=== PATIENT | female | born 1995 | race Caucasian/White ===

== ENCOUNTER 2020-01-21 23:11 | Emergency (ER) | payer OTHER ==
--- NOTE | 2020-01-21 23:17 | ED Physician Documentation ---
History of Present Illness - Stated complaint Stated Complaint: FEM /ABD PX - History obtained from History obtained from: Patient (Patient is a 24-year-old female presents with a chief complaint of some dysuria and urinary frequency she reports she is otherwise healthy and up-to-date on all of her immunizations her last menstrual period was 2 weeks ago she recently discontinued taking her control. She reports subjective fevers and reports she has been taking Aleve for the last day. Denies any headache, cough, neck pain, rash, sore throat.) Review of Systems Constitutional: reports: Chills Eyes: reports: Reviewed and negative Ears: reports: Reviewed and negative Nose: reports: Reviewed and negative Throat: reports: Reviewed and negative Cardiac: reports: Reviewed and negative Respiratory: reports: Reviewed and negative GI: reports: Reviewed and negative : reports: Dysuria, Reviewed and negative Skin: reports: Reviewed and negative Musculoskeletal: reports: Reviewed and negative Neurologic: reports: Reviewed and negative Psychiatric: reports: Reviewed and negative Endocrine: reports: Reviewed and negative Immunocompromised: reports: Reviewed and negative PD PAST MEDICAL HISTORY - Present Medications Home Medications: Ambulatory Orders Medication Instructions Recorded Confirmed Cephalexin [Keflex] 500 mg PO QID 10 Days #40 capsule 01/22/20 - Allergies Allergies/Adverse Reactions: Allergies Allergy/AdvReac Type Severity Reaction Status Date / Time No Known Drug Allergies Allergy Verified 01/21/20 23:35 PD ED PE NORMAL - Vitals Vital signs reviewed: Yes - General General: Alert and oriented X 3, No acute distress, Well developed/nourished - HEENT HEENT: Atraumatic, PERRL, Moist mucous membranes - Neck Neck: Supple, no meningeal sign, No adenopathy, No JVD - Cardiac Cardiac: RRR, No murmur, Strong equal pulses - Respiratory Respiratory: No respiratory distress, Clear bilaterally - Abdomen Abdomen: Normal bowel sounds, Soft, Non tender, Non distended, No organomegaly - Derm Derm: Warm and dry - Extremities Extremities: No deformity, No tenderness to palpate, Normal ROM s pain, No edema, No calf tenderness / cord - Neuro Neuro: Alert and oriented X 3, 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, No motor deficit, No sensory deficit, Normal speech - Psych Psych: Normal mood, Normal affect Results - Vitals Vitals: Vital Signs - 24 hr 01/21/20 01/22/20 01/22/20 23:29 00:36 01:14 Temperature 39.6 C H 38.4 C H Heart Rate 136 H 110 H 104 H Respiratory 18 18 16 Rate Blood Pressure 119/89 H 122/73 O2 Saturation 97 100 100 01/22/20 02:05 Temperature 36.8 C Heart Rate 97 Respiratory 16 Rate Blood Pressure 104/63 O2 Saturation 97 Oxygen O2 Source Room air - Labs Labs: Laboratory Tests 01/21/20 01/21/20 01/21/20 23:30 23:40 23:40 WBC 9.4 RBC 4.22 Hgb 12.8 Hct 38.7 MCV 91.7 MCH 30.3 MCHC 33.1 RDW 12.5 Plt Count 222 MPV 10.6 Neut # (Auto) 7.8 H Lymph # (Auto) 0.6 L Ellis # (Auto) 0.9 Eos # (Auto) 0.0 Baso # (Auto) 0.0 Absolute Nucleated RBC 0.00 Nucleated RBC % 0.0 PT 12.4 INR 1.1 APTT 30.8 Sodium Potassium Chloride Carbon Dioxide Anion Gap BUN Creatinine Estimated GFR (MDRD) Glucose Lactic Acid Calcium Total Bilirubin AST ALT Alkaline Phosphatase Total Creatine Kinase Total Protein Albumin Globulin Albumin/Globulin Ratio Lipase Urine Color YELLOW Urine Clarity HAZY Urine pH 6.0 Ur Specific [place] 1.020 Urine Protein 30 H Urine Glucose (UA) NEGATIVE Urine Ketones NEGATIVE Urine Occult Blood MODERATE H Urine Nitrite POSITIVE H Urine Bilirubin NEGATIVE Urine Urobilinogen 0.2 (NORMAL) Ur Leukocyte Esterase LARGE H Urine RBC 6-10 H Urine WBC >25 H Ur Squamous Epith Cells FEW Squamous Urine Bacteria Moderate H Ur Microscopic Review INDICATED Urine Culture Comments INDICATED Urine HCG, Qual NEGATIVE 01/21/20 01/21/20 23:40 23:40 WBC RBC Hgb Hct MCV MCH MCHC RDW Plt Count MPV Neut # (Auto) Lymph # (Auto) Ellis # (Auto) Eos # (Auto) Baso # (Auto) Absolute Nucleated RBC Nucleated RBC % PT INR APTT Sodium 133 L Potassium 3.1 L Chloride 102 Carbon Dioxide 24 Anion Gap 7.0 BUN 12 Creatinine 0.7 Estimated GFR (MDRD) 103 Glucose 104 H Lactic Acid 1.1 Calcium 8.6 Total Bilirubin 0.5 AST 29 ALT 27 Alkaline Phosphatase 62 Total Creatine Kinase 53 Total Protein 7.8 Albumin 4.2 Globulin 3.6 Albumin/Globulin Ratio 1.2 Lipase 24 Urine Color Urine Clarity Urine pH Ur Specific [place] Urine Protein Urine Glucose (UA) Urine Ketones Urine Occult Blood Urine Nitrite Urine Bilirubin Urine Urobilinogen Ur Leukocyte Esterase Urine RBC Urine WBC Ur Squamous Epith Cells Urine Bacteria Ur Microscopic Review Urine Culture Comments Urine HCG, Qual PD MEDICAL DECISION MAKING - ED course Complexity details: re-evaluated patient (Patient's now afebrile heart rate is in the 90s ambulating, nontoxic and nonseptic appearing she is received 2 L of IV fluids 1 g of IV Rocephin patient will be treated for pyelonephritis with Keflex 500 mg to be taken 4 times a day for the next 10 days and follow-up with her primary care provider today for recheck.), considered differential (Patient's presenting with vague symptoms on history objective findings show temperature of 39.6 and a heart rate of 136 at this point patient will be given an empiric dose of IV Rocephin and IV for bolus and labs and chest x-ray will be sent. As well as blood cultures.), d/w patient Departure - Departure Disposition: 01 Home, Self Care Clinical Impression: Pyelonephritis Condition: Stable Instructions: Pyelonephritis Dc Follow-Up: Carlota Correia ARNP [Primary Care Provider] - Tomorrow Prescriptions: Cephalexin [Keflex] 500 mg PO QID 10 Days #40 capsule Comments: Call your primary care provider today to schedule follow-up visit.
[2020-01-21 23:34] LABS: BILIRUBIN,URINE NEGATIVE (NEGATIVE); GLUCOSE, URINE (UA) NEGATIVE (NEGATIVE); KETONES,URINE (UA) NEGATIVE (NEGATIVE); LEUKOCYTE ESTERASE, URINE LARGE (NEGATIVE); NITRITE,URINE POSITIVE (NEGATIVE); OCCULT BLOOD,URINE MODERATE (NEGATIVE); PROTEIN,URINE 30 mg/dL (NEGATIVE); UROBILINOGEN,URINE 0.2 (NORMAL) E.U./dL (NORMAL)
[2020-01-21 23:35] LABS: CLARITY,URINE HAZY (CLEAR)
[2020-01-21 23:36] LABS: HCG UR QUAL NEGATIVE
[2020-01-21] MEDS ORDERED: cefTRIAXone 1 GM in SODIUM CHLORIDE 0.9% MINIBAG 100 ML IV STA (23:36)
[2020-01-21] MEDS ORDERED: ACETAMINOPHEN 325 MG TABLET PO STA (23:36)
[2020-01-21] MEDS ORDERED: SODIUM CHLORIDE 0.9% 1,000 ML IV ONE (23:36)
[2020-01-21 23:43] LABS: BACTERIA,URINE Moderate /HPF (None Seen); SQUAMOUS EPITHELIAL CELL,UR FEW Squamous (<= Few)
[2020-01-21 23:54] LABS: BASOPHILS % (AUTO) 0.4 %; EOSINOPHILS % (AUTO) 0.1 %; HGB - HEMOGLOBIN 12.8 g/dL (12.0-16.0); LYMPHOCYTES # (AUTO) 0.6 10^3/uL (1.5-3.5); LYMPHOCYTES % (AUTO) 6.2 %; MEAN CORPUSCULAR HEMOGLOBIN 30.3 pg (27.0-31.0); MEAN CORPUSCULAR HGB CONC 33.1 g/dL (32.0-36.0); MEAN CORPUSCULAR VOLUME 91.7 fL (81.0-99.0); MEAN PLATELET VOLUME 10.6 fL (7.9-10.8); MONOCYTES # (AUTO) 0.9 10^3/uL (0.0-1.0); MONOCYTES % (AUTO) 9.6 %; NEUTROPHILS # (AUTO) 7.8 10^3/uL (1.5-6.6); NEUTROPHILS % (AUTO) 83.3 %; PLT - PLATELET COUNT 222 10^3/uL (130-450); RED BLOOD COUNT 4.22 10^6/uL (4.20-5.40); RED CELL DISTRIBUTION WIDTH 12.5 % (12.0-15.0); WHITE BLOOD COUNT 9.4 x10^3/uL (4.8-10.8)
[2020-01-21 23:59] LABS: INR 1.1 (0.8-1.2); PT - PROTHROMBIN TIME 12.4 secs (9.9-12.6)
[2020-01-22 00:05] LABS: ALBUMIN 4.2 g/dL (3.2-5.5); ALBUMIN/GLOBULIN RATIO 1.2 (1.0-2.2); BILIRUBIN,TOTAL 0.5 mg/dL (0.2-1.0); CALCIUM 8.6 mg/dL (8.5-10.3); CREATININE 0.7 mg/dL (0.4-1.0); TOTAL PROTEIN 7.8 g/dL (6.7-8.2)
[2020-01-22 00:06] LABS: PARTIAL THROMBOPLASTIN TIME 30.8 secs (24.9-33.3)
--- NOTE | 2020-01-22 00:25 | XRAY Report ---
Reason: fever Procedure Date: 01/21/2020 Accession Number: [id number] / [id number] Procedure: XR - Chest 1 View X-Ray CPT Code: 30185 Final Report FULL RESULT: EXAM: CHEST RADIOGRAPHY EXAM DATE: 01/21/2020 11:55 PM CLINICAL HISTORY: Fever. COMPARISON: None. TECHNIQUE: 1 view. FINDINGS: Lungs/Pleura: Clear lungs. No pleural effusion. No pneumothorax. Mediastinum: Within exam limitations, the cardiomediastinal contour is normal. Other: None. IMPRESSION: Normal single view chest radiography. [facility]
[2020-01-22] MEDS ORDERED: IBUPROFEN 800 MG TABLET PO STA (00:43)
[2020-01-22] MEDS ORDERED: SODIUM CHLORIDE 0.9% 1,000 ML IV ONE (00:43)
[2020-01-22 02:05] VITALS: BP 104/63
== END 2020-01-22 02:33 | disposition home or self-care (01) ==
LOC: ED 23:11
DX: N12 Tubulo-interstitial nephritis, not specified as acute or chronic (principal)
CPT/HCPCS: 36415; 71045; 80053; 81001; 81025; 82550; 83605; 83690; 85025; 85610; 85730; 87040; 87086; 87181; 96361; 96365; 99283; 99284; A9270; 81003

== ENCOUNTER 2020-04-09 11:57 | Emergency (ER) | payer OTHER ==
[2020-04-09 12:10] VITALS: BP 116/65
[2020-04-09] MEDS ORDERED: IBUPROFEN 600 MG TABLET PO STA (12:36)
--- NOTE | 2020-04-09 12:37 | ED Physician Documentation ---
PD HPI LOWER EXT INJURY - Stated complaint Stated Complaint: RT LEG PX - Chief complaint Chief Complaint: Ext Problem - History obtained from History obtained from: Patient - History of Present Illness PD HPI LOW EXT INJURY LOCATION: Right (24-year-old woman on control without personal history of DVT or PE. She did some hiking last week and a few car rides. Last night she went to bed in normal condition but woke up this morning with moderate to severe right calf pain. It is a cramping pain. There was no specific injury) Review of Systems Constitutional: denies: Fever, Chills Cardiac: denies: Chest pain / pressure, Palpitations Respiratory: denies: Dyspnea, Cough PD PAST MEDICAL HISTORY - Past Medical History Past Medical History: Yes Endocrine/Autoimmune: HyPOthyroidism - Past Surgical History Past Surgical History: No - Present Medications Home Medications: Ambulatory Orders Medication Instructions Recorded Confirmed Bcp 0 mg DAILY 04/09/20 Hydrocodone/Acetaminophen 1 - 2 tab PO Q6H PRN #15 tablet 04/09/20 [Hydrocodone-Acetamin 5-300 mg] Levothyroxine [Synthroid] 0 mg DAILY 04/09/20 04/09/20 - Allergies Allergies/Adverse Reactions: Allergies Allergy/AdvReac Type Severity Reaction Status Date / Time No Known Drug Allergies Allergy Verified 04/09/20 12:10 - Social History Does the pt smoke?: No Smoking Status: Never smoker Does the pt have substance abuse?: No PD ED PE NORMAL - Vitals Vital signs reviewed: Yes - General General: Alert and oriented X 3, No acute distress - Neck Neck: Supple, no meningeal sign, No bony TTP - Extremities Extremities: Other (Right calf is tender but not swollen, positive Homans sign. Normal perfusion.) - Neuro Neuro: Alert and oriented X 3, Normal speech Results - Vitals Vitals: Vital Signs - 24 hr 04/09/20 12:08 Temperature 36.1 C L Heart Rate 81 Respiratory 20 Rate Blood Pressure 116/65 O2 Saturation 99 Oxygen O2 Source Room air - Labs Labs: Laboratory Tests 04/09/20 04/09/20 13:15 13:15 WBC 10.1 RBC 4.35 Hgb 13.8 Hct 41.6 MCV 95.6 MCH 31.7 H MCHC 33.2 RDW 13.6 Plt Count 291 MPV 11.0 H Neut # (Auto) 7.8 H Lymph # (Auto) 1.6 [place] # (Auto) 0.5 Eos # (Auto) 0.0 Baso # (Auto) 0.0 Absolute Nucleated RBC 0.00 Nucleated RBC % 0.0 Sodium 136 Potassium 3.8 Chloride 102 Carbon Dioxide 26 Anion Gap 8.0 BUN 11 Creatinine 0.8 Estimated GFR (MDRD) 88 L Glucose 96 Calcium 9.3 Magnesium 2.0 - Rads (name of study) RLE duplex Radiology: Prelim report reviewed (no dvt) PD MEDICAL DECISION MAKING - ED course ED course: Atraumatic right leg pain, normal exam. Ultrasound and electrolytes were normal. Departure - Departure Disposition: Home, Self Care Clinical Impression: Right leg pain Condition: Good Record reviewed to determine appropriate education?: Yes Instructions: ED Muscle Pain Leg Cramps Prescriptions: Hydrocodone/Acetaminophen [Hydrocodone-Acetamin 5-300 mg] 1 - 2 tab PO Q6H PRN #15 tablet PRN Reason: Pain Comments: Return if worse or if not better in the next few days. Gentle heat and stretching. Forms: Activity restrictions Discharge Date/Time: 04/09/20 13:42
[2020-04-09 13:23] LABS: BASOPHILS % (AUTO) 0.4 %; EOSINOPHILS % (AUTO) 0.3 %; HGB - HEMOGLOBIN 13.8 g/dL (12.0-16.0); LYMPHOCYTES # (AUTO) 1.6 10^3/uL (1.5-3.5); MEAN CORPUSCULAR HEMOGLOBIN 31.7 pg (27.0-31.0); MEAN CORPUSCULAR HGB CONC 33.2 g/dL (32.0-36.0); MEAN CORPUSCULAR VOLUME 95.6 fL (81.0-99.0); MONOCYTES # (AUTO) 0.5 10^3/uL (0.0-1.0); MONOCYTES % (AUTO) 5.1 %; NEUTROPHILS # (AUTO) 7.8 10^3/uL (1.5-6.6); NEUTROPHILS % (AUTO) 77.8 %; PLT - PLATELET COUNT 291 10^3/uL (130-450); RED BLOOD COUNT 4.35 10^6/uL (4.20-5.40); RED CELL DISTRIBUTION WIDTH 13.6 % (12.0-15.0); WHITE BLOOD COUNT 10.1 x10^3/uL (4.8-10.8)
[2020-04-09 13:33] LABS: CALCIUM 9.3 mg/dL (8.5-10.3); CREATININE 0.8 mg/dL (0.4-1.0)
--- NOTE | 2020-04-09 13:36 | Ultrasound Report ---
PROCEDURE: Duplex Ext Veins Right INDICATIONS: leg pain TECHNIQUE: Real-time imaging, as well as color and pulse Doppler interrogation, were performed of the lower extr emity deep veins from the inguinal ligament to the popliteal fossa. COMPARISON: None. FINDINGS: The deep veins are normally compressible, and free of intraluminal thrombus. Color and pu lse Doppler demonstrate normal phasic intraluminal flow. There is normal augmentation response to di stal compression maneuver. IMPRESSION: 1. No DVT in the right lower extremity. 2. Preliminary results given by the technologist to the emergency room provider at 1:15 PM. Reviewed by: Bianca Horn MD on 04/09/2020 1:34 PM PDT Approved by: Bianca Horn MD on 04/09/2020 1:34 PM PDT Station ID: [id number]
== END 2020-04-09 13:42 | disposition home or self-care (01) ==
LOC: ED 11:57
DX: M79.604 Pain in right leg (principal)
CPT/HCPCS: 36415; 80048; 83735; 85025; 93971; 99283; 99284; A9270